=== PATIENT | female | born 1990 ===

== ENCOUNTER 2021-06-12 12:15 | Inpatient (IN) | payer OTHER ==
[~2021-06-12] VITALS: Ht 162.6 cm; Wt 81.6 kg
[2021-06-28] MEDS ORDERED: PRENATAL TABLE1 EAC1 PO (21:22)
[2021-06-28] MEDS ORDERED: FOLIC ACID0.8 M1 PO (21:23)
[2021-06-28] MEDS ORDERED: IRON325 MG PO (21:23)
== END 2021-07-01 14:30 | disposition home or self-care (01) | DRG 807 ==
LOC: OB/GYN 06-25 12:15 → SURG-SUITE 06-28 20:34 → LDR 06-28 20:34 → SURG-SUITE 06-29 01:32
PROVIDERS: ADMIT Obstetrics & Gynecology Maternal & Fetal Medicine; ATTEND Obstetrics & Gynecology Maternal & Fetal Medicine
PROC: 4A1HXFZ Monitoring of Products of Conception, Cardiac Rhythm, External Approach (ICD-10-PCS; 2021-06-28)
PROC: 10E0XZZ Delivery of Products of Conception, External Approach (ICD-10-PCS; principal; 2021-06-29)
PROC: 0W8NXZZ Division of Female Perineum, External Approach (ICD-10-PCS; 2021-06-29)
DX: O80 Encounter for full-term uncomplicated delivery (principal); Z37.0 Single live birth; Z3A.40 40 weeks gestation of pregnancy

== ENCOUNTER 2021-06-18 08:15 | Outpatient (CLI) | payer OTHER | END 2021-06-18 08:42 | disposition home or self-care (01) | LOC: NST 08:15 | PROVIDERS: ATTEND Obstetrics & Gynecology Maternal & Fetal Medicine | DX: Z34.83 Encounter for supervision of other normal pregnancy, third trimester (principal) ==

== ENCOUNTER 2021-06-23 08:20 | Outpatient (CLI) | payer OTHER | END 2021-06-23 09:06 | disposition home or self-care (01) | LOC: NST 08:20 | PROVIDERS: ATTEND Obstetrics & Gynecology | DX: Z34.83 Encounter for supervision of other normal pregnancy, third trimester (principal) ==

== ENCOUNTER 2021-06-26 08:02 | Outpatient (CLI) | payer OTHER | END 2021-06-26 08:34 | disposition home or self-care (01) | LOC: NST 08:02 | PROVIDERS: ATTEND Obstetrics & Gynecology | DX: Z34.83 Encounter for supervision of other normal pregnancy, third trimester (principal) ==